=== PATIENT | male | born 1970 | race Caucasian/White ===

== ENCOUNTER 2018-10-13 14:50 | Emergency (ER) | payer SELFPAY ==
[2018-10-13] MEDS ORDERED: IPRATROPIUM/ALBUTEROL 0.5-2.5 MG/3 ML AMPUL NEB ONE (15:49)
[2018-10-13] MEDS ORDERED: LIDOCAINE 1% INJ-PF (10 MG/ML) 30 ML SDV NEB ONE (15:49)
--- NOTE | 2018-10-13 16:30 | RADIOLOGY REPORT (SQ) ---
EXAM DESCRIPTION: CHEST SINGLE VIEW COMPLETED DATE/TIME: 10/13/2018 4:16 pm REASON FOR STUDY: sob COMPARISON: None. EXAM PARAMETERS: NUMBER OF VIEWS: One view. TECHNIQUE: Single frontal radiographic view of the chest acquired. RADIATION DOSE: NA LIMITATIONS: Patient has made a shallow inspiration. FINDINGS: LUNGS AND PLEURA: No opacities, masses or pneumothorax. No pleural effusion. MEDIASTINUM AND HILAR STRUCTURES: No masses. Contour normal. HEART AND VASCULAR STRUCTURES: Heart normal in size. Normal vasculature. BONES: No acute findings. HARDWARE: None in the chest. OTHER: No other significant finding. IMPRESSION: NO ACUTE RADIOGRAPHIC FINDING IN THE CHEST. TECHNICAL DOCUMENTATION: JOB ID: [id number] [employer]- All Rights Reserved Reading location - IP/workstation name: [email or web address]
[2018-10-13] MEDS ORDERED: RINGERS SOLUTION,LACTATED 1,000 ML IV PRN (18:27)
[2018-10-13] MEDS ORDERED: MAGNESIUM SULFATE/D5W 1 GM/100 ML RTUPB IV ONE (18:28)
[2018-10-13 18:36] LABS: ABSOLUTE BASOPHILS # (AUTO) 0.1 10^3/uL (0.0-0.2); ABSOLUTE EOSINOPHILS # (AUTO) 0.1 10^3/uL (0.0-0.6); ABSOLUTE LYMPHOCYTES (AUTO) 2.8 10^3/uL (0.5-4.7); ABSOLUTE MONOCYTES (AUTO) 1.2 10^3/uL (0.1-1.4); ABSOLUTE NEUT (AUTO) 5.6 10^3/uL (1.7-8.2); BASOPHILS % (AUTO) 1.2 % (0-2); EOSINOPHILS % (AUTO) 1.3 % (0-6); HEMATOCRIT 46.8 % (37.9-51.0); HEMOGLOBIN 16.4 g/dL (13.5-17.0); LYMPHOCYTES % (AUTO) 28.3 % (13-45); MEAN CORPUSCULAR HEMOGLOBIN 32.8 pg (27.0-33.4); MEAN CORPUSCULAR HGB CONC 34.9 g/dL (32.0-36.0); MEAN CORPUSCULAR VOLUME 94 fl (80-97); MONOCYTES % (AUTO) 12.2 % (3-13); PLATELET COUNT 220 10^3/uL (150-450); RED BLOOD COUNT 4.98 10^6/uL (4.35-5.55); RED CELL DISTRIBUTION WIDTH 13.8 % (11.5-14.0); TOTAL CELLS COUNTED % (AUTO) 100 %; WHITE BLOOD COUNT 9.9 10^3/uL (4.0-10.5)
[2018-10-13 18:47] LABS: ANION GAP 14 (5-19); BLOOD UREA NITROGEN 6 mg/dL (7-20); CALCIUM 9.2 mg/dL (8.4-10.2); CARBON DIOXIDE 30 mmol/L (22-30); CHLORIDE 105 mmol/L (98-107); GLUCOSE 154 mg/dL (75-110); POTASSIUM 4.1 mmol/L (3.6-5.0); SODIUM 149.1 mmol/L (137-145)
[2018-10-13] MEDS ORDERED: ALBUTEROL SULFATE HFA (90 MCG/PUFF) 8 GM MDI (1 MDI/ER DISP) IH ONE (19:15)
[2018-10-13] MEDS ORDERED: PREDNISONE 20 MG TABLET PO ONE (19:15)
[2018-10-13] MEDS ORDERED: AZITHROMYCIN 250 MG TABLET PO ONE (19:15)
--- NOTE | 2018-10-13 20:04 | ER Document Report ---
ED General - General Chief Complaint: ETOH Abuse Stated Complaint: POSSIBLE ETOH Time Seen by Provider: 10/13/18 15:39 - HPI Patient complains to provider of: EtOH abuse feeling unwell cough short of breath Notes: Patient was seen in triage area and became very combative upon my evaluation patient is now in the examination room. Patient does admit to drinking alcohol heavily recently moved to the area from [place]. Patient states his main complaint today is coughing with some yellow sputum production. Patient also states that he is concerned about his blood pressure states in the last few weeks blood pressure has been within the 200s. Patient otherwise states that he was brought here by his fiance patient states that he does not want any further medical workup other than to evaluate his cough. Patient otherwise denies any chest pain or abdominal pain. Later the fianc is available for further questioning stating that the patient has passed out twice a day. To which the patient states that he was drinking and passed out she is concerned about his alcohol consumption and otherwise urging the patient to seek further medical care. At this time patient agrees to chest x-ray breathing treatments - Related Data Allergies/Adverse Reactions: No Known Allergies Allergy (Verified 10/13/18 15:54) Past Medical History - Social History Smoking Status: Current Every Day Smoker Family History: Reviewed & Not Pertinent Patient has suicidal ideation: No Patient has homicidal ideation: No - Past Medical History Cardiac Medical History: Reports: Hx Hypertension Renal/ Medical History: Denies: Hx Peritoneal Dialysis Review of Systems - Review of Systems Constitutional: No symptoms reported EENT: No symptoms reported Cardiovascular: No symptoms reported Respiratory: Cough, Short of breath, Sputum, Wheezing Gastrointestinal: No symptoms reported Genitourinary: No symptoms reported Male Genitourinary: No symptoms reported Musculoskeletal: No symptoms reported Skin: No symptoms reported Hematologic/Lymphatic: No symptoms reported Neurological/Psychological: No symptoms reported -: Yes All other systems reviewed and negative Physical Exam - Vital signs Vitals: Temp Pulse Resp BP Pulse Ox 98.5 F 95 15 142/87 H 96 10/13/18 15:22 10/13/18 15:22 10/13/18 15:22 10/13/18 15:22 10/13/18 15:22 Interpretation: Tachycardic - General General appearance: Appears well, Alert - HEENT Head: Normocephalic, Atraumatic Eyes: Normal Pupils: PERRL - Respiratory Respiratory status: No respiratory distress Chest status: Nontender Breath sounds: Nonproductive cough, Wheezing Chest palpation: Normal - Cardiovascular Rhythm: Regular Heart sounds: Normal auscultation Murmur: No - Abdominal Inspection: Normal Distension: No distension Bowel sounds: Normal Tenderness: Nontender Organomegaly: No organomegaly - Back Back: Normal, Nontender - Extremities General upper extremity: Normal inspection, Nontender, Normal color, Normal ROM , Normal temperature General lower extremity: Normal inspection, Nontender, Normal color, Normal ROM , Normal temperature, Normal weight bearing. No: Giselle's sign - Neurological Neuro grossly intact: Yes Cognition: Normal Orientation: AAOx4 Omar Coma Scale Eye Opening: Spontaneous Wally Coma Scale Verbal: Oriented Wally Coma Scale Motor: Obeys Commands Omar Coma Scale Total: 15 Speech: Normal Motor strength normal: LUE, RUE, LLE, RLE Sensory: Normal - Psychological Associated symptoms: Normal affect, Normal mood - Skin Skin Temperature: Warm Skin Moisture: Dry Skin Color: Normal Course - Re-evaluation Re-evalutation: 10/13/18 23:17 Patient was monitored in ER. Upon reevaluation patient had received breathing treatments chest x-ray was otherwise negative. Patient states breathing is better cough is better and much improved with lidocaine neb patient now is more agreeable to further medical evaluation basic laboratory studies were performed with the menstruation IV fluids and magnesium. Patient has hypernatremia more likely due to his alcohol consumption 10/13/18 23:20 Patient's presentation with cough productive sputum more concerning for possible bronchitis. Patient improved with bronchodilator therapy will give 3 days of steroids to help out with his wheezing patient denies and was given an inhaler here in the ER. Educated patient need to wean his alcohol consumption and also to stop smoking. Patient states understanding list of PCPs were given to the patient and her local in the area. Patient will follow up with 1 of these and to be discharged home - Vital Signs Vital signs: Temp Pulse Resp BP Pulse Ox 98.8 F 95 18 136/90 H 95 10/13/18 21:04 10/13/18 15:22 10/13/18 20:52 10/13/18 20:52 10/13/18 20:52 - Laboratory Result Diagrams: 10/13/18 14:55 10/13/18 14:55 Laboratory results interpreted by me: 10/13/18 14:55 Sodium 149.1 H BUN 6 L Glucose 154 H Discharge - Discharge Clinical Impression: Bronchitis, Hypernatremia, Chronic alcoholism Condition: Good Disposition: HOME, SELF-CARE Instructions: Bronchitis ([facility]), Chronic Alcoholism ([facility]), Family Physicians / Practices Additional Instructions: Laboratory studies that did show hyponatremia which is consistent with dehydration. I would recommend weaning her alcohol consumption along with stopping smoking. Please eat a healthy diet please make sure drinking plenty of fluids to stay well-hydrated. I would also recommend following up with 1 of the primary care physicians listed in your discharge packet. Your evaluation today otherwise shows a normal chest x-ray no signs of pneumonia by do not think you have underlying bronchitis. We will treat this with bronchodilator albuterol steroids prednisone antibiotic Zithromax. Return to ER if any symptoms worsen. Please use the inhaler that we gave you here in ER 2 puffs every 4 hours as needed for shortness of breath Prescriptions: Azithromycin [Zithromax] 250 mg PO DAILY #4 tablet Prednisone [Deltasone 20 mg Tablet] 2 tab PO DAILY 2 Days tablet Forms: Smoking Cessation Education, Return to Work
[2018-10-13 21:05] VITALS: BP 136/90
== END 2018-10-13 21:07 | disposition home or self-care (01) ==
LOC: ER 14:50
DX: F10.20 Alcohol dependence, uncomplicated (principal); J40 Bronchitis, not specified as acute or chronic; E87.0 Hyperosmolality and hypernatremia; R05 Cough; R06.02 Shortness of breath; F17.200 Nicotine dependence, unspecified, uncomplicated; I10 Essential (primary) hypertension
CPT/HCPCS: 94640 ×2; 99284; 96365; 96366; 36415; 83735; 85025; 80048; 71045; J3490 ×2; J3475; J7512; J7120; J7620